=== PATIENT | female | born 1970 | race Caucasian/White ===

== ENCOUNTER 2019-01-10 06:05 | Day surgery (SDC) | payer BC ==
[2018-12-29 16:40] VITALS: BMI 30.4
[~2019-01-10 06:05] MED LIST: CEFAZOLIN 2 GM in DEXTROSE 5%-WATER - 50 ML IVPB ONE; CELECOXIB 200 MG CAPSULE PO ONE; TRANEXAMIC ACID 1000 MG/10 ML VIAL IVPUSH ONE
[2019-01-10] MEDS ORDERED: CELECOXIB 200 MG CAPSULE ONE (06:41)
[2019-01-10] MEDS ORDERED: MIDAZOLAM HCL 2 MG/2 ML SINGLE DOSE VIAL ONE ×2 (07:14→07:18)
[2019-01-10] MEDS ORDERED: DEXAMETHASONE SOD PHOSPHATE/PF 10 MG/ML SDV ONE (07:14)
[2019-01-10] MEDS ORDERED: BUPIVACAINE HCL/PF 0.5% (5 MG/ML) 30 ML VIAL IJ ONE (07:14)
[2019-01-10] MEDS ORDERED: PROPOFOL 20 ML ONE ×4 (07:24→09:25)
[2019-01-10] MEDS ORDERED: BUPIVICAINE 0.25%/MORPH PF/KETOROLAC - 51ML DISP.SYRINGE IA ONE ×3 (08:00→09:32)
[2019-01-10] MEDS ORDERED: ceFAZolin SODIUM 1 GM VIAL ONE (08:12)
[2019-01-10] MEDS ORDERED: TRANEXAMIC ACID 1000 MG/10 ML VIAL ONE (08:12)
[2019-01-10] MEDS ORDERED: ONDANSETRON 4 MG/2 ML VIAL ONE (09:40)
[2019-01-10] MEDS ORDERED: DEXAMETHASONE SOD PHOSPHATE 4 MG/1 ML VIAL ONE (09:40)
[2019-01-10] MEDS ORDERED: KETOROLAC TROMETHAMINE 30 MG/1 ML VIAL ONE (09:40)
[2019-01-10] MEDS ORDERED: MAG HYDROX/AL HYDROX/SIMETH 30 ML UNIT-DOSE CUP PO PRN (10:19)
[2019-01-10] MEDS ORDERED: MAGNESIUM HYDROX 2400MG/30ML ORAL SUSPENSION 30 ML CUP PO PRN (10:19)
[2019-01-10] MEDS ORDERED: ONDANSETRON 4 MG/2 ML VIAL IVPUSH PRN (10:19)
[2019-01-10] MEDS ORDERED: LACTATED RINGERS SOLUTION 1,000 ML IV SCH (10:30)
--- NOTE | 2019-01-10 10:44 | OP ---
Operative Note - Note: Operative Date: 01/10/19 Pre-Operative Diagnosis: right lateral compartment osteoarthritis Operation: Right lateral unicondylar makoplasty Post-Operative Diagnosis: Same as Pre-op Surgeon: Nick Glez Bait Maker: Kayla Verduzco Anesthesiologist/TUBE DEPATCHER: Vince Melissa Anesthesia: Spinal, Local (block), MAC Estimated Blood Loss (mls): 75 Operative Report Dictated: Yes
--- NOTE | 2019-01-10 10:45 | SURG ---
Surgery Design Manager Note Design Manager: Kayla Verduzco PA-C Date of Service: 01/10/19 Diagnosis: right knee lateral compartment osteoarthritis Procedure: Right lateral unicondylar makoplasty I was present for the entirety of the operative procedure. For further detail, please refer to operative report. Visit type - Case Type Case Type: Scheduled - Emergency Emergency Visit: No - New patient This patient is new to me today: Yes Date on this admission: 01/10/19
--- NOTE | 2019-01-10 11:06 | OP ---
DATE OF OPERATION: DATE OF DICTATION: 01/10/2019 PREOPERATIVE DIAGNOSIS: Right knee lateral compartment osteoarthritis. POSTOPERATIVE DIAGNOSIS: Right knee lateral compartment osteoarthritis. OPERATION PERFORMED: Right partial knee replacement of the lateral compartment with RAIMUNDO assistance. SURGEON: Nick Glez MD SCIENTIFIC PROGRAMMER ANALYST: NACHO TYPE OF ANESTHESIA: Spinal and block. DISPOSITION: Patient returned to the recovery room in stable condition. COMPONENTS USED: Gerardo RAIMUNDO size 2 right lateral tibia, 4 right lateral femur, and 8-mm polyethylene. DRAINS: None. ESTIMATED BLOOD LOSS: Less than 50 mL. TOTAL TOURNIQUET TIME: 90 minutes. Preoperative alignment was 4.5 degrees of varus. Postoperative diagnosis is 1 degree of valgus. Postoperative range of motion is 0-140 degrees. FINDINGS: Severe lateral compartment osteoarthritis and minimal grade 1-2 changes in the patellofemoral compartment. INDICATION FOR THE PROCEDURE: Patient failed nonoperative treatment for right knee arthritis and was indicated for a right unicompartmental knee replacement. Preoperatively in the waiting area as well as in the office, I had a long discussion with the patient regarding the plan, the expected outcome, and the risks, benefits, and alternatives of surgery. The risks include bleeding, which could require transfusion, infection, which could require future surgery and removal of implant, and long-term antibiotics, damage to surrounding structures such as nerves, arteries, veins, tendons, muscles, and other adjacent structures leading to possible numbness, weakness, decreased function, and/or possible need for surgical repair. Also discussed was the possibility of intraoperative and postoperative fractures, implant loosening, stiffness, need for extensive therapy, and need for revision surgery for a variety of reasons. We also discussed blood clots and other possible medical complications. This was discussed at length, and consent was obtained. We also discussed total knee replacement as a possible alternative or a need for conversion to total knee replacement in the future. PROCEDURE IN DETAIL: Patient was taken to the operating room and placed in the supine position. Following induction of spinal anesthesia, a well-padded tourniquet was placed high on the right thigh, and the right lower extremity was prepped and draped in a sterile fashion. A time-out was performed. I confirmed the correct side, verified that the site was marked, and confirmed the correct patient and procedure to be performed as well as that the patient received the appropriate preoperative antibiotics and tranexamic acid and had a compression device on the nonoperative leg. The tourniquet was elevated followed by a midline incision and a lateral parapatellar arthrotomy. We performed a lateral parapatellar arthrotomy. The checkpoints were placed. The arrays were placed on the tibia and the femur through stab incisions and blunt dissection. The bony landmarks and the hip center were all registered. We made our plan. We cut the tibia using a saw and then the medial aspect using a bur. We did the posterior femur we used a saw and distal femur we used a bur. We did this all while protecting the surrounding soft tissues. We placed trials. With our trials in, there was good stability, soft tissue tension, range of motion, and proper alignment. The trials were then removed. We copiously irrigated the knee, removed the meniscus then we performed sequential sedimentation starting at the tibia and then the femur. Excess cement was removed. We inserted a trial poly. We then copiously irrigated the knee. After a 3-minute soak with a diluted Betadine solution, we injected a pain cocktail. We then waited until all the cement was hardened. With the trial, we had good stability, soft tissue tension, range of motion, and alignment. All the arrays and checkpoints were removed. The final poly was inserted and seated flush. With the final poly in, there was good stability, soft tissue tension, range of motion, and alignment, and we copiously irrigated the knee and closed in layers with 0 V-Lock and 0 Vicryl for the arthrotomy and 2-0 Vicryl and hernan for the skin. The knee was wrapped in a dry, sterile compressive dressing, and the tourniquet was released. Compartments were soft at the end of the procedure. Pulses were palpated. Patient was transferred to the recovery room in stable condition. Will be immobilized . WOUND CLASSIFICATION: Clean. COMPLICATIONS: None. SPECIMENS: None. Opal [id number]
[2019-01-10] MEDS ORDERED: oxyCODONE HCL 5 MG TABLET PO PRN ×2 (12:11)
[2019-01-10 12:40] VITALS: TEMP 98
[2019-01-10] MEDS ORDERED: ACETAMINOPHEN 325 MG TABLET (FP) ONE (12:53)
[2019-01-10] MEDS ORDERED: ACETAMINOPHEN 325 MG TABLET (FP) PO SCH ×2 (14:00→20:00)
[2019-01-10] MEDS ORDERED: FERROUS SO4 325 MG TABLET (FP) PO SCH (17:30)
[2019-01-10 17:53] VITALS: BP 124/75; PULSE 71
[2019-01-10] MEDS ORDERED: CELECOXIB 200 MG CAPSULE PO SCH (22:00)
[2019-01-10] MEDS ORDERED: oxyCODONE HCL 10 MG SUSTAINED ACTING TABLET PO SCH (22:00)
[2019-01-10] MEDS ORDERED: ASPIRIN 325 MG TABLET PO SCH (22:00)
[2019-01-10] MEDS ORDERED: ASCORBIC ACID 500 MG TABLET (FP) PO SCH (22:00)
[2019-01-10] MEDS ORDERED: SENNOSIDES/DOCUSATE COMBO (SENNA PLUS) TABLET (UD) PO SCH (22:00)
[2019-01-11] MEDS ORDERED: PANTOPRAZOLE 40 MG TABLET PO SCH (10:00)
[2019-01-11] MEDS ORDERED: MULTIVITAMINS (DAILY MVI) TABLET (FP) PO SCH (10:00)
== END 2019-01-10 17:00 | disposition home or self-care (01) ==
LOC: FASU 06:05
PROVIDERS: ATTEND Orthopaedic Surgery
PROC: 8E0YXBZ Computer Assisted Procedure of Lower Extremity (ICD-10-PCS; 2019-01-10)
PROC: 0SRC0M9 Replacement of Right Knee Joint with Lateral Unicondylar Synthetic Substitute, Cemented, Open Approach (ICD-10-PCS; principal; 2019-01-10 08:26)
DX: M17.11 Unilateral primary osteoarthritis, right knee (principal)
CPT/HCPCS: 20985; 27446; C1776; 73560-TC-RT-FY; 81025; 94760; 97116-GP